=== PATIENT | male | born 2000 | race Two or more races ===

== ENCOUNTER 2025-01-01 08:44 | Emergency (ER) | payer MEDICAID ==
[~2025-01-01] VITALS: Ht 167.6 cm; Wt 63.5 kg
[2025-01-01 08:54] VITALS: BP 135/97; TEMP 97.8; O2SAT 99
[2025-01-01] MEDS ORDERED: dexAMETHasone 1 MG/ML UDC ONE (12:08)
[2025-01-01] MEDS: dexAMETHasone 1 MG/ML UDC PO ONE (12:10)
== END 2025-01-01 12:10 | disposition home or self-care (01) ==
LOC: ER 08:56
DX: K12.1 Other forms of stomatitis (principal); J02.9 Acute pharyngitis, unspecified; Z60.2 Problems related to living alone
CPT/HCPCS: 99283; 87070; 87880; J8540; 86403-TC